=== PATIENT | female | born 1980 | race Caucasian/White ===

== ENCOUNTER 2017-09-22 15:21 | Emergency (ER) | payer OTHER ==
[~2017-09-22] VITALS: Ht 157.5 cm; Wt 77.1 kg
[~2017-09-22 15:21] MED LIST: ACET325 PO; AMOX500 PO; Bactrim 400-801 EACH PO; Bactrim Ds Tab1 EACH PO; CEFP200 PO; CEFU500 PO; CEPH500 PO; CLAR500 PO; CLIN300 PO; CYCL10 PO; Cleocin HCl150 MG PO; Cleocin HCl300 MG PO; HYDACE5 PO; IBUP600 PO; IBUP800 PO; LEVO750 PO; MUPI2TC TOP; Mupirocin22 GM TP; NAPR500 PO; NEOPOLHCSU RIGHTEAR; Norco 5-325 Ta1 EACH PO; OMEP20ER PO; PROC10 PO; Percocet 5-3251 EACH PO; Robaxin-750750 MG PO; SULTRIDS PO; Ultram50 MG PO; Verotin-Gr Cap1 EACH PO
[2017-09-22] MEDS ORDERED: Cleocin HCl300 MG PO (16:22)
[2017-09-22] MEDS ORDERED: MUPI1NAS (16:22)
[2018-07-06] MEDS ORDERED: METCAR500 PO (22:08)
[2018-07-06] MEDS ORDERED: Percocet 5-3251 EACH PO (22:08)
== END 2017-09-22 16:32 | disposition home or self-care (01) ==
LOC: ER 15:21
DX: J34.0 Abscess, furuncle and carbuncle of nose (principal); F17.200 Nicotine dependence, unspecified, uncomplicated; Z88.0 Allergy status to penicillin; Z79.899 Other long term (current) drug therapy; Z86.14 Personal history of Methicillin resistant Staphylococcus aureus infection; Z98.51 Tubal ligation status
CPT/HCPCS: 99283

== ENCOUNTER 2019-08-22 14:21 | Emergency (ER) | payer OTHER ==
[~2019-08-22] VITALS: Ht 154.9 cm; Wt 80.7 kg
[~2019-08-22 14:21] MED LIST changes: +METCAR500 PO; +MUPI1NAS
[2019-08-22] MEDS ORDERED: Bactrim Ds Tab1 EACH PO (14:56)
[2019-08-22 15:00] LABS: Calcium, Ionized (POC) 1.12 mmol/L (1.10-1.46); Chloride (POC) 103 mmol/L (98-108); Creatinine (POC) 0.7 mg/dL (0.6-1.0); Glucose (ISTAT POC) 68 mg/dL (70-99); Hemoglobin (POC) 12.9 g/dL (12.0-16.0); Sodium (POC) 138 mmol/L (135-148); Total CO2 (POC) 24 mmol/L (21-32)
== END 2019-08-22 15:05 | disposition home or self-care (01) ==
LOC: ER 14:21
PROVIDERS: Emergency Medicine
DX: K13.0 Diseases of lips (principal); B95.62 Methicillin resistant Staphylococcus aureus infection as the cause of diseases classified elsewhere
CPT/HCPCS: 36415; 80047; 85014; 99283; A9270-GY

== ENCOUNTER 2020-01-13 17:21 | Emergency (ER) | payer OTHER ==
[~2020-01-13] VITALS: Ht 154.9 cm; Wt 84.4 kg
== END 2020-01-13 18:07 | disposition home or self-care (01) ==
LOC: ER 17:21
DX: L23.7 Allergic contact dermatitis due to plants, except food (principal); F17.200 Nicotine dependence, unspecified, uncomplicated; Z88.0 Allergy status to penicillin
CPT/HCPCS: 96372; 99282-25; J3301

== ENCOUNTER 2020-05-22 18:03 | Emergency (ER) | payer OTHER ==
[~2020-05-22] VITALS: Ht 154.9 cm; Wt 79.4 kg
[2020-05-22 18:48] LABS: Source, Urine Clean Catch
[2020-05-22 18:52] LABS: BASOPHILS ABSOLUTE AUTO 0.05 K/mm3 (0.00-0.23); BASOPHILS PERCENT AUTO 0 % (0-2); EOSINOPHILS ABSOLUTE AUTO 0.09 K/mm3 (0.00-0.68); EOSINOPHILS PERCENT AUTO 1 % (0-6); Hematocrit 42.9 % (33.0-51.0); Hemoglobin 14.3 g/dL (11.5-16.0); IMMATURE GRAN ABSOLUTE AUTO 0.05 K/mm3 (0.00-0.10); IMMATURE GRAN PERCENT AUTO 0 % (0-1); LYMPHOCYTES ABSOLUTE AUTO 2.22 K/mm3 (0.84-5.20); LYMPHOCYTES PERCENT AUTO 14 % (21-46); MONOCYTES ABSOLUTE AUTO 1.61 K/mm3 (0.16-1.47); MONOCYTES PERCENT AUTO 10 % (4-13); Mean Corpuscular HGB 29.9 pg (26.0-34.0); Mean Corpuscular HGB Conc 33.3 g/dL (31.5-36.5); Mean Corpuscular Volume 90 fL (80-100); NEUTROPHILS PERCENT AUTO 75 % (41-73); Platelet Count 440 K/mm3 (150-400); RDW Coefficient Variation 12.8 % (11.7-14.2); RDW Standard Deviation 42.4 fL (35.1-46.3); Red Blood Cell Count 4.79 M/mm3 (3.80-5.20); White Blood Cell Count 16.32 K/mm3 (4.00-11.30)
[2020-05-22 19:00] LABS: Appearance, Urine Hazy (Clear); Bilirubin, Urine Neg (Neg); Blood, Urine 4+ (Neg); Color, Urine Yellow (P-Yellow); Glucose Qualitative, Urine Neg (Neg); Ketones, Urine Neg (Neg); Leukocyte Esterase, Urine 3+ (Neg); Nitrite, Urine Neg (Neg); Protein, Urine 2+ (Neg); Specific Gravity, Urine 1.015 (1.003-1.022); Urobilinogen, Urine NORM (Normal)
[2020-05-22 19:02] LABS: Bacteria Mod /hpf; Squamous Epithelial Cells Few /hpf (Few); White Blood Cells, Urine 25-50 /hpf (0-5)
[2020-05-22 19:10] LABS: Alanine Aminotransfer (ALT/SGP 21 U/L (12-78); Albumin, Blood 3.7 g/dL (3.4-5.0); Albumin/Globulin Ratio 0.8 (0.8-1.8); Alk Phos 93 U/L (50-136); Anion Gap 5 mmol/L (6-16); Aspartate Aminotrans (AST/SGOT 15 U/L (12-37); Bilirubin, Total 1.1 mg/dL (0.1-1.0); Blood Urea Nitrogen 9 mg/dL (8-24); Bun/Creatinine Ratio 11.9 (12.0-20.0); CO2, Blood 27 mmol/L (21-32); Calcium, Blood 9.6 mg/dL (8.5-10.1); Chloride, Blood 106 mmol/L (98-108); Creatinine, Blood 0.76 mg/dL (0.40-1.00); Globulin, Blood 4.7 g/dL (2.2-4.0); Glomerular Filtration Rate >60 (60-); Glucose, Blood 96 mg/dL (70-99); Potassium, Blood 3.5 mmol/L (3.5-5.5); Sodium, Blood 138 mmol/L (136-145); Total Protein, Blood 8.4 g/dL (6.4-8.2)
[2020-05-22] MEDS ORDERED: CEPH500 PO (20:34)
== END 2020-05-22 20:43 | disposition home or self-care (01) ==
LOC: ER 18:03
PROVIDERS: Emergency Medicine
DX: N39.0 Urinary tract infection, site not specified (principal); F17.200 Nicotine dependence, unspecified, uncomplicated
CPT/HCPCS: 36415; 80053; 81001; 85025; 87077; 87086; 87186; 96365; 99283-25; J0696

== ENCOUNTER 2021-01-11 10:37 | Emergency (ER) | payer OTHER ==
[~2021-01-11] VITALS: Ht 154.9 cm; Wt 79.4 kg
[2021-02-27] MEDS ORDERED: Norco 5-325 Ta1 EACH PO (12:59)
[2021-02-27] MEDS ORDERED: CYCL10 PO (12:59)
[2021-02-27] MEDS ORDERED: IBUP600 PO (13:00)
[2021-03-05] MEDS ORDERED: OXAYDO5 M1 PO (10:58)
[2021-03-05] MEDS ORDERED: Robaxin750 MG PO (10:58)
== END 2021-01-11 11:25 | disposition home or self-care (01) ==
LOC: ER 10:37
DX: L23.7 Allergic contact dermatitis due to plants, except food (principal); F17.210 Nicotine dependence, cigarettes, uncomplicated; Z88.0 Allergy status to penicillin
CPT/HCPCS: 96372; 99283-25; J3301

== ENCOUNTER 2021-02-16 12:13 | Emergency (ER) | payer OTHER ==
[~2021-02-16] VITALS: Ht 157.5 cm; Wt 80.7 kg
[2021-02-27] MEDS ORDERED: Norco 5-325 Ta1 EACH PO (12:59)
[2021-02-27] MEDS ORDERED: CYCL10 PO (12:59)
[2021-02-27] MEDS ORDERED: IBUP600 PO (13:00)
[2021-03-05] MEDS ORDERED: OXAYDO5 M1 PO (10:58)
[2021-03-05] MEDS ORDERED: Robaxin750 MG PO (10:58)
== END 2021-02-16 14:23 | disposition other institution (70) ==
LOC: ER 12:13
DX: M79.10 Myalgia, unspecified site (principal); Z88.0 Allergy status to penicillin; F17.210 Nicotine dependence, cigarettes, uncomplicated; V89.2XXA Person injured in unspecified motor-vehicle accident, traffic, initial encounter; Y92.410 Unspecified street and highway as the place of occurrence of the external cause
CPT/HCPCS: 71046; 73562-LT; 99284-25

== ENCOUNTER 2023-03-02 21:09 | Emergency (ER) | payer OTHER ==
[~2023-03-02] VITALS: Ht 160 cm; Wt 90.7 kg
[~2023-03-02 21:09] MED LIST changes: +OXAYDO5 M1 PO; +Robaxin750 MG PO
[2023-03-02 21:59] LABS: BASOPHILS ABSOLUTE AUTO 0.08 K/mm3 (0.00-0.23); BASOPHILS PERCENT AUTO 1 % (0-2); EOSINOPHILS PERCENT AUTO 4 % (0-6); Hematocrit 36.7 % (33.0-51.0); Hemoglobin 12.5 g/dL (11.5-16.0); IMMATURE GRAN ABSOLUTE AUTO 0.05 K/mm3 (0.00-0.10); IMMATURE GRAN PERCENT AUTO 1 % (0-1); LYMPHOCYTES ABSOLUTE AUTO 3.74 K/mm3 (0.84-5.20); LYMPHOCYTES PERCENT AUTO 35 % (21-46); MONOCYTES ABSOLUTE AUTO 0.93 K/mm3 (0.16-1.47); MONOCYTES PERCENT AUTO 9 % (4-13); Mean Corpuscular HGB 30.2 pg (26.0-34.0); Mean Corpuscular HGB Conc 34.1 g/dL (31.5-36.5); Mean Corpuscular Volume 89 fL (80-100); Mean Platelet Volume 9.6 fL (9.1-12.4); NEUTROPHILS ABSOLUTE AUTO 5.65 K/mm3 (1.96-9.15); NEUTROPHILS PERCENT AUTO 52 % (41-73); Platelet Count 406 K/mm3 (150-400); RDW Coefficient Variation 13.6 % (11.7-14.2); RDW Standard Deviation 44.6 fL (35.1-46.3); Red Blood Cell Count 4.14 M/mm3 (3.80-5.20); White Blood Cell Count 10.85 K/mm3 (4.00-11.30)
[2023-03-02 22:10] LABS: Albumin, Blood 3.2 g/dL (3.4-5.0); Albumin/Globulin Ratio 0.9 (0.8-1.8); Bilirubin, Total 0.3 mg/dL (0.1-1.0); Calcium, Blood 8.4 mg/dL (8.5-10.1); Creatinine, Blood 0.75 mg/dL (0.40-1.00); Globulin, Blood 3.6 g/dL (2.2-4.0); Potassium, Blood 4.4 mmol/L (3.5-5.5); Total Protein, Blood 6.8 g/dL (6.4-8.2)
[2023-03-02 23:15] VITALS: BP 112/69
[2023-03-02] MEDS ORDERED: POTA10T PO (23:15)
[2023-03-02] MEDS ORDERED: FURO20 PO (23:15)
== END 2023-03-02 23:19 | disposition home or self-care (01) ==
LOC: ER 21:09
PROVIDERS: Student in an Organized Health Care Education/Training Program
DX: R60.0 Localized edema (principal); Z88.0 Allergy status to penicillin; Z79.899 Other long term (current) drug therapy; F17.210 Nicotine dependence, cigarettes, uncomplicated
CPT/HCPCS: 80053; 85025; 99284; A9270; J1940